=== PATIENT | female | born 2005 | race African-American/Black ===

== ENCOUNTER 2025-08-05 07:45 | Emergency (ER) | payer MEDICAID ==
[~2025-08-05] VITALS: Ht 160 cm; Wt 82.0 kg
[2025-08-05 07:53] VITALS: O2SAT 100
[2025-08-05] MEDS: LIDOCAINE HCL 1% 20ML VIAL INFIL ONE (09:40)
[2025-08-05] MEDS ORDERED: TOPUD MT (09:52)
[2025-08-05] MEDS ORDERED: IBUP-1523 MT (09:52)
[2025-08-05] MEDS ORDERED: CLIN-194 MT (09:52)
[2025-08-05 10:13] VITALS: BP 122/70; PULSE 72; RESP 16; TEMP 36.8; O2SAT 100
[2025-08-05] MEDS: IBUPROFEN 600MG TABLET PO ONE (10:13)
[2025-08-05] MEDS: ACETAMINOPHEN 325MG TABLET PO ONE (10:13)
== END 2025-08-05 10:16 | disposition home or self-care (01) ==
LOC: ER 07:45
DX: L02.411 Cutaneous abscess of right axilla (principal)
CPT/HCPCS: 10060; 99283; J2003; Z7610 ×4